=== PATIENT | male | born 1950 | race Caucasian/White ===

== ENCOUNTER → 2021-08-16 13:30 | Outpatient (BNVA) | payer OTHER, SELFPAY | PROVIDERS: Family Provider Internal Medicine; Referring Provider Family Medicine; Visit Provider Internal Medicine | DX: E27.9 Disorder of adrenal gland, unspecified (principal); D35.00 Benign neoplasm of unspecified adrenal gland; F17.200 Nicotine dependence, unspecified, uncomplicated | CPT/HCPCS: 99204 ==

== ENCOUNTER 2021-10-02 22:44 | Emergency (ER) | payer OTHER, MEDICARE, SELFPAY ==
[2021-10-02 22:46] VITALS: BP 164/76; PULSE 93; RESP 24; TEMP 36.8; O2SAT 94; BMI 23.2
--- NOTE | 2021-10-02 22:51 | ECG_ITS ---
[facility] Test Date: 2021-10-02 Pat Name: Ronnie Rob Department: Room: Gender: Male Brief Writer: : 1950 Requested By: Sherlyn Esqueda Order Number: [id number] Timothy MD: Juan Matias M.D. Measurements Intervals [place] Rate: 93 P: 60 VA: 173 QRS: 3 QRSD: 105 T: 33 QT: 354 QTc: 440 Interpretive Statements SINUS RHYTHM WITH OCCASIONAL SUPRAVENTRICULAR PREMATURE COMPLEXES No previous ECG available for comparison Electronically Signed On 10-03-2021 16:01:39 CHIEF SECURITY OFFICER by Juan Matias M.D. [email or web address]
--- NOTE | 2021-10-02 22:51 | XRR_ITS ---
PROCEDURE INFORMATION: Exam: XR Chest Exam date and time: 10/02/2021 10:51 PM Age: 71 years old Clinical indication: Shortness of breath; Prior surgery; Surgery type: Coronary stent; Patient HX: C/O SOB. TECHNIQUE: Imaging protocol: XR of the chest. Views: 1 view. COMPARISON: No relevant prior studies available. FINDINGS: Lungs: Minimal nonspecific opacity in the lung bases. Pleural spaces: There is no pleural effusion or pneumothorax. Heart/Mediastinum: Cardiomediastinal contours are unremarkable. Bones/joints: Bones are unremarkable. XR/XR chest 1V portable [id number] IMPRESSION: Minimal nonspecific opacity in the lung bases. Possible atelectasis or consolidation.
[2021-10-02 23:06] LABS: Basophils % 0.2 %; Eosinophils % 0.1 %; Hematocrit 43.5 % (42.0-52.0); Hemoglobin 14.5 g/dL (11.7-16.6); Lymphocytes % 7.1 %; Mean Corpuscular HGB Conc 33.3 g/dL (30.0-36.0); Mean Corpuscular Hemoglobin 32.7 pg (28.0-34.0); Mean Platelet Volume 10.3 fL (7.4-10.4); Monocytes # 1.8 10^3/uL (0.2-0.9); Monocytes % 12.7 %; Neutrophils # 11.04 10^3/uL (1.8-7.7); Neutrophils % 79.5 %; Nucleated Red Blood Cells % 0 %; Platelet Count 193 10^3/cmm (130-400); Red Blood Count 4.44 10^6/uL (4.1-5.3); Red Cell Distribution Width 12.2 % (12.1-15.1); White Blood Count 13.9 10^3/uL (4.0-10.0)
[2021-10-02 23:16] VITALS: BP 148/94; PULSE 78; RESP 21; O2SAT 92
--- NOTE | 2021-10-02 23:18 | ED_ITS ---
HPI - SOB/Dyspnea General: Chief Complaint: Shortness of Breath/Dyspnea Stated Complaint: SOB Time Seen by Provider: 10/02/21 22:51 Source: patient and EMS Mode of arrival: EMS Limitations: no limitations History of Present Illness: HPI Narrative: 71-year-old male states that he has had a cough along with low-grade fevers shortness of breath over the last 2 days he states he got much worse tonight when he was out feeding his lifestyle. He states he has been around his who just recently tested positive for influenza. Patient here is 89% on room air he does not wear oxygen at home does have a history of COPD along with longtime smoking. Denies any chest pain. Associated symptoms: Deny abdominal pain, chest pain, nausea or vomiting Review of Systems Const: Reports: chills and body aches Eyes: Denies: blurry vision or eye discomfort ENMT: Denies: throat pain or dental pain Card: Denies: chest pain Resp: Reports: dyspnea and non-productive cough GI: Denies: abdominal pain, nausea, vomiting or diarrhea : Denies: dysuria Musc: Denies: neck pain or back pain Skin/Breast: Denies: rash Neuro: Denies: headache(s) Psych: Denies: depression Raimundo/Lymph: Denies: easy bruising All/Imm: Denies: urticaria PFSH ED PFSH: Medical History Agent orange exposure Aneurysm Benign essential HTN Cataract Diabetes Diverticulitis Enlarged prostate Heart attack High cholesterol Hydrocele Kidney stones Surgical History Stented coronary artery Family History Father H/O asbestos exposure Mother Cancer Social History Smoking and tobacco status: current every day smoker Quit status (tobacco): not considering quitting Second hand smoke exposure: Yes Smoking risk assessment/counseling performed?: Yes Alcohol intake: never Desire information about alcohol rehabilitation?: No Counseling given: No Desire information about substance/drug rehabilitation?: No Counseling given: No Adopted: No Caregiver/support person: No Lives independently: Yes Household members: spouse Housing: House Marital status: Number of children: 4 Highest education level completed: Some College, No Degree service: Yes Current occupational status: retired History of recent travel: No Physical Exam Const: COMMON NORMALS: no acute distress, patient oriented x3 and healthy appearing HENMT: COMMON NORMALS: normocephalic and atraumatic HEAD & SCALP: normocephalic and atraumatic Eye: COMMON NORMALS: Equal, round and reactive pupils present and EOMs intact bilaterally PUPIL: Yes Equal, round and reactive pupils present Neck/C-Spine: COMMON NORMALS: full ROM and supple Chest: COMMONS NORMALS: normal inspection of the chest and normal palpation of entire chest wall Resp: COMMON NORMALS: normal respiratory effort, No retractions, No use of accessory muscles and clear to auscultation bilaterally AUSCULTATION: clear to auscultation bilaterally Cardio: COMMON NORMALS: regular rate, regular rhythm and No murmurs present (Cardio) RATE: regular rate RHYTHM: regular rhythm GI: COMMON NORMALS: Normal to inspection, nondistended, normoactive bowel sounds present, Soft to palpation, non-tender and no masses PALPATION: Yes Soft to palpation Extremity: COMMON NORMALS: normal to inspection and full ROM Neuro: COMMON NORMALS: patient oriented x3, moves all extremities and no focal motor deficits Psych: COMMON NORMALS: mental status grossly normal, Normal thought process present and cooperative THOUGHT PROCESS: Normal thought process present Skin: COMMON NORMALS: no rashes or lesions noted and no wounds GENERAL SKIN EXAM: no rashes or lesions noted Course Vital Signs: Vital signs: Vital Signs Temperature 98.3 F 10/02/21 22:46 Pulse Rate 83 10/03/21 00:02 Respiratory Rate 19 H 10/03/21 00:02 Blood Pressure 148/94 10/02/21 23:16 Pulse Oximetry 90 10/03/21 00:02 MDM - SOB/Dyspnea Medical Decision Making Patient presents here with influenza he feels much improved after breathing treatment and steroids he is not requiring oxygen here any longer. X-ray showed no pneumonia. We will start him on Tamiflu along with prednisone and albuterol inhaler he is to follow-up his primary care doctor in 3 to 5 days return to ER if worsening he understands and agrees to plan. Lab Data : 10/02/21 22:55 10/02/21 22:55 Labs/Radiology: Radiology Impressions Chest X-Ray 10/02/21 22:51 IMPRESSION: Minimal nonspecific opacity in the lung bases. Possible atelectasis or consolidation. Laboratory Results WBC 13.9 10^3/uL (4.0-10.0) H 10/02/21 22:55 RBC 4.44 10^6/uL (4.1-5.3) 10/02/21 22:55 Hgb 14.5 g/dL (11.7-16.6) 10/02/21 22:55 Hct 43.5 % (42.0-52.0) 10/02/21 22:55 MCV 98.0 fl (80-94) H 10/02/21 22:55 MCH 32.7 pg (28.0-34.0) 10/02/21 22:55 MCHC 33.3 g/dL (30.0-36.0) 10/02/21 22:55 RDW 12.2 % (12.1-15.1) 10/02/21 22:55 Plt Count 193 10^3/cmm (130-400) 10/02/21 22:55 MPV 10.3 fL (7.4-10.4) 10/02/21 22:55 Neut % (Auto) 79.5 % 10/02/21 22:55 Lymph % (Auto) 7.1 % 10/02/21 22:55 Bowie % (Auto) 12.7 % 10/02/21 22:55 Eos % (Auto) 0.1 % 10/02/21 22:55 Baso % (Auto) 0.2 % 10/02/21 22:55 Neut # (Auto) 11.04 10^3/uL (1.8-7.7) H 10/02/21 22:55 Lymph # (Auto) 1.0 10^3/uL (0.8-4.8) 10/02/21 22:55 Bowie # (Auto) 1.8 10^3/uL (0.2-0.9) H 10/02/21 22:55 Eos # (Auto) 0.0 10^3/uL (0.0-0.8) 10/02/21 22:55 Baso # (Auto) 0.0 10^3/uL (0.0-0.1) 10/02/21 22:55 Nucleated RBC % (auto) 0 % 10/02/21 22:55 Nucleated RBCs # 0.0 /100WBC 10/02/21 22:55 Specimen Type Arterial 10/03/21 00:20 Sample Site Radial, right 10/03/21 00:20 ABG pH 7.46 (7.35-7.45) H 10/03/21 00:20 ABG pCO2 35.2 mmHg (35-45) 10/03/21 00:20 ABG pO2 57.1 mmHg (80.0-100.0) L 10/03/21 00:20 ABG HCO3 25.1 mmol/L (22-26) 10/03/21 00:20 ABG Base Excess 1.6 mmol/L (-2.0-2.0) 10/03/21 00:20 Christofer Test Pos 10/03/21 00:20 Hematocrit 43.6 % (42-52) 10/03/21 00:20 Hgb O2 Saturation 89.8 % (95-100) L 10/03/21 00:20 Carboxyhemoglobin 1.3 %THgb (0.4-20.1) 10/03/21 00:20 Methemoglobin 1.0 % (0.4-1.5) 10/03/21 00:20 Total Hemoglobin 14.2 g/dL (14-18) 10/03/21 00:20 O2 Delivery Device Nc 10/03/21 00:20 O2 Liters/Min 1.5 % 10/03/21 00:20 Sales Representative ID Claudio 10/03/21 00:20 Sodium 137 mmol/L (136-145) 10/02/21 22:55 Potassium 4.4 mmol/L (3.5-5.1) 10/02/21 22:55 Chloride 95 mmol/L (98-107) L 10/02/21 22:55 Carbon Dioxide 25 mmol/L (22-29) 10/02/21 22:55 Anion Gap 21.4 (5-19) H 10/02/21 22:55 BUN 12 mg/dL (8-23) 10/02/21 22:55 Creatinine 0.8 mg/dL (0.7-1.2) 10/02/21 22:55 GFR Calculation Not Reportable 10/02/21 22:55 Glucose 120 mg/dL (65-115) H 10/02/21 22:55 Calculated Osmolality 285 mOsm/kg (285-295) 10/02/21 22:55 Calcium 8.4 mg/dL (8.5-10.5) L 10/02/21 22:55 Total Bilirubin 0.7 mg/dL (0.15-1.2) 10/02/21 22:55 AST 18 U/L (0-40) 10/02/21 22:55 ALT 8 U/L (0-41) 10/02/21 22:55 Alkaline Phosphatase 69 IU/L (40-130) 10/02/21 22:55 NT-Pro-B Natriuret Pep 875 pg/mL (0-125) H 10/02/21 22:55 Total Protein 6.7 g/dL (6.6-8.7) 10/02/21 22:55 Albumin 4.2 g/dL (3.5-5.2) 10/02/21 22:55 Globulin 2.5 g/dL (1.3-4.6) 10/02/21 22:55 Lipase 15 U/L (13-60) 10/02/21 22:55 Nasal Influ A H1 2008 PCR Cancelled 10/03/21 01:02 Coronavirus 229E (PCR) Not detected (NOT DETECT) 10/02/21 23:00 Influenza A (H1) PCR Cancelled 10/03/21 01:02 Influenza A (H3) PCR Cancelled 10/03/21 01:02 Influenza Type A (PCR) Cancelled 10/03/21 01:02 Influenza Type B (PCR) Cancelled 10/03/21 01:02 SARS-CoV-2 (PCR) Not detected (NOT DETECT) 10/02/21 23:00 EKG Data EKG 1: I personally reviewed and interpreted this EKG as follows: EKG Interpretation Date: 10/02/21 EKG interpretation time: 23:02 Interpretation: nsr hr [address] or t wave abnormalities [id number] [id number] Discharge Plan Discharge Patient Disposition: Home Clinical Impression: Influenza Condition: Stable Prescriptions: New prednisone 50 mg tablet 50 mg PO DAILY Qty: 5 0RF albuterol sulfate 90 mcg/actuation HFA aerosol inhaler 2 inh INHALATION Q6H PRN (Reason: shortness of breath or wheezing) Qty: 8 0RF Tamiflu 75 mg capsule 75 mg PO BID 5 Days Qty: 10 0RF No Action clopidogrel 75 mg tablet 75 mg PO DAILY 0RF carvedilol 12.5 mg tablet 12.5 mg PO ONCE 0RF Rx Instructions: must administer with a meal/food cholecalciferol (vitamin D3) 50 mcg (2,000 unit) capsule 50 mcg PO DAILY 0RF amlodipine 10 mg tablet 10 mg PO DAILY 0RF lisinopril 40 mg tablet 40 mg PO DAILY 0RF metformin 750 mg tablet extended release 24 hr 750 mg PO DAILY 0RF folic acid 1 mg tablet 1 mg PO DAILY 0RF aspirin 81 mg tablet,delayed release (DR/EC) 81 mg PO DAILY 0RF omeprazole 20 mg capsule,delayed release(DR/EC) 20 mg PO DAILY 0RF Glucosamine-Fish Oil 500-400-5 mg-mg-unit capsule PO BID 0RF ascorbic acid (vitamin C) 1,000 mg tablet 1 g PO DAILY 0RF Discharge Orders: Discharge ED (Routine); Ordered 10/03/21 Ordered By: Sherlyn Esqueda Discharge Diet: Advance as tolerated Discharge Activity: Resume usual activity Patient Instructions: Influenza (ED) Coding Level of Care Code ED Supervisor Rubber Covering for Cara Fwd Exam Comprehensive
--- NOTE | 2021-10-02 23:18 | PC.NURSE ---
patient received with c/o SOB. states just could not catch breath. history COPD and continues to smoke. states previous stent placement. speech clear sentences complete.
[2021-10-02 23:22] LABS: Albumin Level 4.2 g/dL (3.5-5.2); Alkaline Phosphatase 69 IU/L (40-130); Blood Urea Nitrogen 12 mg/dL (8-23); Calcium 8.4 mg/dL (8.5-10.5); Carbon Dioxide 25 mmol/L (22-29); Chloride 95 mmol/L (98-107); Globulin 2.5 g/dL (1.3-4.6); Glucose 120 mg/dL (65-115); Lipase 15 U/L (13-60); Osmolality Calculated 285 mOsm/kg (285-295); Sodium 137 mmol/L (136-145); Total Bilirubin 0.7 mg/dL (0.15-1.2); Total Protein 6.7 g/dL (6.6-8.7)
[2021-10-02 23:23] LABS: Alanine Aminotransferase 8 U/L (0-41); Anion Gap 21.4 (5-19); Aspartate Amino Transferase 18 U/L (0-40); Potassium 4.4 mmol/L (3.5-5.1)
[2021-10-02 23:31] LABS: NT Pro B Type Natriuretic Pept 875 pg/mL (0-125)
[2021-10-03 00:02] VITALS: PULSE 83; RESP 19; O2SAT 90
[2021-10-03] MEDS: ipratropium-albuterol 3 mL Neb INHALATION (00:02)
[2021-10-03 00:32] LABS: ABG PCO2 35.2 mmHg (35-45); ABG PH Result 7.46 (7.35-7.45); Arterial Blood Gas Hematocrit 43.6 % (42-52); Base Excess ABG 1.6 mmol/L (-2.0-2.0); Blood Gas Allen Test Pos; Blood Gas LPM 1.5 %; Blood Gas Operator Identificat JB; Blood Gas Sample Site Radial, right; Blood Gas Sample Type Arterial; Carboxyhemoglobin 1.3 %THgb (0.4-20.1); HCO3 ABG 25.1 mmol/L (22-26); HGB O2 Sat 89.8 % (95-100); Oxygen Device NC; PO2 ABG 57.1 mmHg (80.0-100.0); Total Hemoglobin 14.2 g/dL (14-18)
[2021-10-03 00:55] LABS: Adenovirus Not Detected (NOT DETECT); Chlamydia Pneumoniae Not Detected (NOT DETECT); Coronavirus 229E,HKU1,NL63,OC4 Not Detected (NOT DETECT); Human Metapneumovirus Not Detected (NOT DETECT); Human Rhinovirus/Enterovirus Not Detected (NOT DETECT); Influenza A Detected (NOT DETECT); Influenza A H1 Not Detected (NOT DETECT); Influenza A H1-2009 Not Detected (NOT DETECT); Influenza A H3 Detected (NOT DETECT); Influenza B Not Detected (NOT DETECT); Mycoplasma Pneumoniae Not Detected (NOT DETECT); Parainfluenza Virus Type 1 Not Detected (NOT DETECT); Parainfluenza Virus Type 2 Not Detected (NOT DETECT); Parainfluenza Virus Type 3 Not Detected (NOT DETECT); Parainfluenza Virus Type 4 Not Detected (NOT DETECT); Respiratory Syncytial Virus A Not Detected (NOT DETECT); Respiratory Syncytial Virus B Not Detected (NOT DETECT); SARS-COV-2 Not Detected (NOT DETECT)
[2021-10-03 01:03] LABS: Results from Genmark
[2021-10-03 02:26] VITALS: BP 135/73; PULSE 78; RESP 20; TEMP 36.2
== END 2021-10-03 02:27 | disposition home or self-care (01) ==
PROVIDERS: Emergency Provider Emergency Medicine
DX: J11.1 Influenza due to unidentified influenza virus with other respiratory manifestations (principal); Z79.84 Long term (current) use of oral hypoglycemic drugs; Z79.02 Long term (current) use of antithrombotics/antiplatelets; Z79.82 Long term (current) use of aspirin; I10 Essential (primary) hypertension; E11.9 Type 2 diabetes mellitus without complications; F17.210 Nicotine dependence, cigarettes, uncomplicated; Z20.822 Contact with and (suspected) exposure to COVID-19
CPT/HCPCS: 71045; 80053; 82805; 83690; 83880; 85025; 87040; 87631; 87635; 93005; 94640; 96374; 99284; J2930; J3535

== ENCOUNTER 2021-10-05 22:53 | Emergency (ER) | payer OTHER, MEDICARE, SELFPAY ==
[2021-10-05 22:55] VITALS: BP 153/78; PULSE 79; RESP 18; TEMP 36.1; O2SAT 92; BMI 23.1
[2021-10-05 23:25] VITALS: O2SAT 95
--- NOTE | 2021-10-05 23:56 | XRR_ITS ---
PROCEDURE INFORMATION: Exam: XR Chest Exam date and time: 10/05/2021 11:56 PM Age: 71 years old Clinical indication: Cough and shortness of breath; Prior surgery; Surgery type: Stent; Patient HX: Flu+ C/O SOB, cough, elev BP; Additional info: Influenza symptoms TECHNIQUE: Imaging protocol: XR of the chest. Views: 1 view. COMPARISON: CR (CHEST, ) 10/02/2021 11:04 PM FINDINGS: Lungs: Stable COPD . Pleural spaces: Unremarkable. No pleural effusion. No pneumothorax. Heart/Mediastinum: Unremarkable. No cardiomegaly. Bones/joints: Unremarkable. XR/XR chest 1V portable [id number] IMPRESSION: Stable COPD .
--- NOTE | 2021-10-05 23:56 | XRR_ITS ---
PROCEDURE INFORMATION: Exam: XR Abdomen Exam date and time: 10/05/2021 11:56 PM Age: 71 years old Clinical indication: Abdominal pain; Generalized; Patient HX: C/O constipation and non specific abd pain TECHNIQUE: Imaging protocol: XR of the abdomen. Views: Frontal supine view of the abdomen. 1 View. COMPARISON: CR (CHEST, ) 10/02/2021 11:04 PM FINDINGS: Gastrointestinal tract: Mild retained feces. Vasculature: Calcification of the abdominal aorta and/or iliac arteries consistent with atherosclerotic vessel disease. Bones/joints: Unremarkable. XR/XR KUB portable [id number] IMPRESSION: Mild retained feces.
--- NOTE | 2021-10-05 23:57 | ED_ITS ---
Documented by User: JOSE FRANCISCO Bedoya 10/06/21 02:57 HPI - General Adult General: Chief complaint: General Medical Stated complaint: HIGH BLOOD PRESSURE Time Seen by Provider: 10/05/21 23:30 History of Present Illness: Patient is a 71-year-old male comes to the ED with elevated blood pressure. Past medical history of AAA and COPD but is not on any oxygen at home. Patient was seen here in the ED back on 10/02 and diagnosed with influenza. Patient says he still having his flulike symptoms with cough, congestion and some mild shortness of breath. Tonight he checked his blood pressure at home and it was elevated. He said the systolic number was close to 200. Patient does endorse some constipation and says he has not had a bowel movement in 3 days. Reports some abdominal pain in the periumbilical region. Denies any chest pain or vomiting. Associated symptoms: Reports dyspnea; Deny chest pain, headache(s), nausea, rash, palpitations or vomiting Review of Systems 2 Const: Reports: chills and body aches; Denies: fever(s) or fatigue Eyes: Denies: change in vision or eye discomfort ENMT: Denies: throat pain, odynophagia, nasal discharge or nasal congestion Card: Denies: chest pain, palpitations, edema, swelling of feet/ankles, dyspnea on exertion or orthopnea Resp: Reports: dyspnea and non-productive cough; Denies: productive cough GI: Reports: abdominal pain and constipation; Denies: nausea, vomiting, diarrhea or hematochezia : Denies: flank pain, difficulty urinating, dysuria or hematuria Musc: Denies: neck pain, back pain or extremity swelling Skin/Breast: Denies: rash or new lesions Neuro: Denies: headache(s), numbness in extremities or weakness in extremities PFSH ED PFSH: Medical History Agent orange exposure Aneurysm Benign essential HTN Cataract Diabetes Diverticulitis Enlarged prostate Heart attack High cholesterol Hydrocele Kidney stones Surgical History Stented coronary artery Family History Father H/O asbestos exposure Mother Cancer Social History Smoking and tobacco status: current every day smoker Quit status (tobacco): not considering quitting Second hand smoke exposure: Yes Smoking risk assessment/counseling performed?: Yes Alcohol intake: never Desire information about alcohol rehabilitation?: No Counseling given: No Desire information about substance/drug rehabilitation?: No Counseling given: No Adopted: No Caregiver/support person: No Lives independently: Yes Household members: spouse Housing: House Marital status: Number of children: 4 Highest education level completed: Some College, No Degree service: Yes Current occupational status: retired History of recent travel: No Physical Exam Const: COMMON NORMALS: no acute distress, patient oriented x3 and alert GENERAL APPEARANCE: cooperative and comfortable HENMT: COMMON NORMALS: normocephalic HEAD & SCALP: normocephalic MOUTH: Normal oral and palatal mucosa present THROAT: posterior oropharynx normal and uvula midline Neck/C-Spine: COMMON NORMALS: supple GENERAL: Yes normal visual inspection Resp: COMMON NORMALS: normal respiratory effort, No retractions and No use of accessory muscles AUSCULTATION: diminished lung sounds bilateral in the lower lung nunez Cardio: COMMON NORMALS: regular rate, regular rhythm, S1 normal heart sound present, S2 normal heart sound present, No gallops present (Cardio), No clicks present (Cardio), No murmurs present (Cardio) and Peripheral pulses 2+ throughout RATE: regular rate RHYTHM: regular rhythm HEART SOUNDS: S1 normal heart sound present and S2 normal heart sound present PERIPHERAL PULSES: Peripheral pulses 2+ throughout GI: COMMON NORMALS: Normal to inspection, nondistended, normoactive bowel sounds present, Soft to palpation and no masses PALPATION: Yes Soft to palpation and Yes Tenderness to palpation present (GI) (Periumbilical region) : COMMON NORMALS: Yes no CVA tenderness BLADDER/KIDNEY EXAM: Yes no CVA tenderness Back/Pelvis: COMMON NORMALS: no CVA tenderness Extremity: COMMON NORMALS: normal to inspection and no pedal edema Neuro: COMMON NORMALS: patient oriented x3 and moves all extremities SENSORIUM/ORIENTATION: Yes alert Skin: GENERAL SKIN EXAM: dry skin Course Vital Signs: Vital signs: Vital Signs Temperature 97.0 F L 10/05/21 22:55 Pulse Rate 79 10/05/21 22:55 Respiratory Rate 18 10/05/21 22:55 Blood Pressure 153/78 10/05/21 22:55 Pulse Oximetry 95 10/05/21 23:25 MDM - General Adult Medical Decision Making Patient is a 71-year-old male who comes to the ED with elevated blood pressure and some abdominal pain. Patient has a past medical history of COPD and AAA. Patient was seen here in the ED a couple days ago and diagnosed with influenza. He was sent home with a prescription for Tamiflu, albuterol inhaler and prednisone. Here in the ED patient's blood pressure is 153/78 rest of vitals are stable. Exam shows some diminished lung sounds at the bases bilaterally. He also has some palpable tenderness over the umbilical region of abdomen. White blood cell count 16.1 the rest of CBC and CMP was unremarkable. KUB showed mild retained feces. Chest x-ray showed stable COPD. Abdominal CT showed mild to moderate retained feces in some mild bilateral lower lobe pneumonia. Patient diagnosed with pneumonia and constipation. Patient was discharged home with a prescription for doxycycline and MiraLAX. He was told to follow-up with his PCP in 3 to 5 days for reevaluation. He was told to continue taking his previously prescribed medications. Return to ED precautions given. Patient understood and agreed with plan. Lab Data I reviewed the patient's lab results. : 10/06/21 01:31 10/06/21 01:31 Radiology Impressions Chest X-Ray 10/05/21 23:56 IMPRESSION: Stable COPD . KUB X-Ray 10/05/21 23:56 IMPRESSION: Mild retained feces. Abdomen/Pelvis CT 10/06/21 00:18 IMPRESSION: 1. Mild bilateral lower lobe pneumonia. 2. Mild to moderate retained feces. 3. Bowel wall thickening in the 1st and 2nd portion the duodenum suggesting possible duodenitis versus neoplasm. 4. 4.4 cm fusiform abdominal aortic aneurysm without rupture. Laboratory Results WBC 16.1 10^3/uL (4.0-10.0) H 10/06/21 01:31 RBC 4.59 10^6/uL (4.1-5.3) 10/06/21 01:31 Hgb 15.1 g/dL (11.7-16.6) 10/06/21 01:31 Hct 44.1 % (42.0-52.0) 10/06/21 01:31 MCV 96.1 fl (80-94) H 10/06/21 01:31 MCH 32.9 pg (28.0-34.0) 10/06/21 01: MCHC 34.2 g/dL (30.0-36.0) 10/06/21 01: RDW 11.9 % (12.1-15.1) L 10/06/21 01:31 Plt Count 310 10^3/cmm (130-400) 10/06/21 01:31 MPV 9.7 fL (7.4-10.4) 10/06/21 01:31 Neut % (Auto) 70.9 % 10/06/21 01: Lymph % (Auto) 12.2 % 10/06/21 01:31 [place] % (Auto) 15.9 % 10/06/21 01: Eos % (Auto) 0.0 % 10/06/21 01: Baso % (Auto) 0.2 % 10/06/21 01: Neut # (Auto) 11.44 10^3/uL (1.8-7.7) H 10/06/21 01:31 Lymph # (Auto) 2.0 10^3/uL (0.8-4.8) 10/06/21 01:31 [place] # (Auto) 2.6 10^3/uL (0.2-0.9) H 10/06/21 01:31 Eos # (Auto) 0.0 10^3/uL (0.0-0.8) 10/06/21 01: Baso # (Auto) 0.0 10^3/uL (0.0-0.1) 10/06/21 01:31 Nucleated RBC % (auto) 0 % 10/06/21 01: Nucleated RBCs # 0.0 /100WBC 10/06/21 01:31 Sodium 136 mmol/L (136-145) 10/06/21 01:31 Potassium 3.6 mmol/L (3.5-5.1) 10/06/21 01: Chloride 98 mmol/L (98-107) 10/06/21 01:31 Carbon Dioxide 26 mmol/L (22-29) 10/06/21 01:31 Anion Gap 15.6 (5-19) 10/06/21 01:31 BUN 13 mg/dL (8-23) 10/06/21 01:31 Creatinine 0.7 mg/dL (0.7-1.2) 10/06/21 01:31 GFR Calculation Not Reportable 10/06/21 01:31 Glucose 137 mg/dL (65-115) H 10/06/21 01:31 Calculated Osmolality 284 mOsm/kg (285-295) L 10/06/21 01:31 Calcium 8.8 mg/dL (8.5-10.5) 10/06/21 01:31 Total Bilirubin 0.6 mg/dL (0.15-1.2) 10/06/21 01:31 AST 10 U/L (0-40) 10/06/21 01:31 ALT 8 U/L (0-41) 10/06/21 01:31 Alkaline Phosphatase 67 IU/L (40-130) 10/06/21 01:31 Total Protein 6.9 g/dL (6.6-8.7) 10/06/21 01:31 Albumin 3.8 g/dL (3.5-5.2) 10/06/21 01:31 Globulin 3.1 g/dL (1.3-4.6) 10/06/21 01:31 Discharge Plan Discharge Patient Disposition: Home Clinical Impression: Pneumonia Qualifiers: Pneumonia type: due to unspecified organism Laterality: bilateral Lung location: lower lobe of lung Qualified Code(s): J18.9 - Pneumonia, unspecified organism Constipation Qualifiers: Constipation type: slow transit constipation Qualified Code(s): K59.01 - Slow transit constipation Condition: Stable Prescriptions: New doxycycline hyclate 100 mg capsule 100 mg PO BID 10 Days Qty: 20 0RF Miralax 17 gram/dose powder 17 g PO DAILY PRN (Reason: constipation) Qty: 238 0RF No Action clopidogrel 75 mg tablet 75 mg PO DAILY 0RF carvedilol 12.5 mg tablet 12.5 mg PO ONCE 0RF Rx Instructions: must administer with a meal/food cholecalciferol (vitamin D3) 50 mcg (2,000 unit) capsule 50 mcg PO DAILY 0RF amlodipine 10 mg tablet 10 mg PO DAILY 0RF lisinopril 40 mg tablet 40 mg PO DAILY 0RF metformin 750 mg tablet extended release 24 hr 750 mg PO DAILY 0RF folic acid 1 mg tablet 1 mg PO DAILY 0RF aspirin 81 mg tablet,delayed release (DR/EC) 81 mg PO DAILY 0RF omeprazole 20 mg capsule,delayed release(DR/EC) 20 mg PO DAILY 0RF Glucosamine-Fish Oil 500-400-5 mg-mg-unit capsule PO BID 0RF ascorbic acid (vitamin C) 1,000 mg tablet 1 g PO DAILY 0RF prednisone 50 mg tablet 50 mg PO DAILY Qty: 5 0RF albuterol sulfate 90 mcg/actuation HFA aerosol inhaler 2 inh INHALATION Q6H PRN (Reason: shortness of breath or wheezing) Qty: 8 0RF Tamiflu 75 mg capsule 75 mg PO BID 5 Days Qty: 10 0RF Discharge Orders: Discharge ED (Routine); Ordered 10/06/21 Ordered By: Beni Lebron Discharge Diet: Regular Discharge Activity: Resume usual activity Patient Instructions: Constipation (DC), Pneumonia (ED) Activity Restrictions/Additional Instructions: Follow-up with medical provider as directed in 3 to 5 days for reevaluation.Take medications as prescribed. Return to the ER or your medical provider if condition worsens. Please read and understand discharge instructions. Thank you for choosing [facility] for your healthcare needs today. Please realize this is an emergency room and that we are providing you with a medical screening exam and this may not be complete and all inclusive of all the testing and or work up that you may need to determine your ailment or severity of your illness. It is very important that you follow up as instructed or that you return to the Emergency Department should you have concerns or if your cond ition changes or worsens in any way. Coding Level of Care Code ED Head Mva Reactor Operator for Chg Fwd Exam Comprehensive Documented by User: Garett Park DO 10/06/21 03:06 HPI - General Adult General: Chief complaint: General Medical Stated complaint: HIGH BLOOD PRESSURE Time Seen by Provider: 10/05/21 23:30 [facility] ED PFSH: Medical History Agent orange exposure Aneurysm Benign essential HTN Cataract Diabetes Diverticulitis Enlarged prostate Heart attack High cholesterol Hydrocele Kidney stones Surgical History Stented coronary artery Family History Father H/O asbestos exposure Mother Cancer Social History Smoking and tobacco status: current every day smoker Quit status (tobacco): not considering quitting Second hand smoke exposure: Yes Smoking risk assessment/counseling performed?: Yes Alcohol intake: never Desire information about alcohol rehabilitation?: No Counseling given: No Desire information about substance/drug rehabilitation?: No Counseling given: No Adopted: No Caregiver/support person: No Lives independently: Yes Household members: spouse Housing: House Marital status: Number of children: 4 Highest education level completed: Some College, No Degree service: Yes Current occupational status: retired History of recent travel: No Course Vital Signs: Vital signs: Vital Signs Temperature 97.0 F L 10/05/21 22:55 Pulse Rate 79 10/05/21 22:55 Respiratory Rate 18 10/05/21 22:55 Blood Pressure 153/78 10/05/21 22:55 Pulse Oximetry 95 10/05/21 23:25 MDM - General Adult Medical Decision Making Patient is a 71-year-old male who comes to the ED with elevated blood pressure and some abdominal pain. Patient has a past medical history of COPD and AAA. Patient was seen here in the ED a couple days ago and diagnosed with influenza. He was sent home with a prescription for Tamiflu, albuterol inhaler and prednisone. Here in the ED patient's blood pressure is 153/78 rest of vitals are stable. Exam shows some diminished lung sounds at the bases bilaterally. He also has some palpable tenderness over the umbilical region of abdomen. White blood cell count 16.1 the rest of CBC and CMP was unremarkable. KUB showed mild retained feces. Chest x-ray showed stable COPD. Abdominal CT showed mild to moderate retained feces in some mild bilateral lower lobe pneumonia. Patient diagnosed with pneumonia and constipation. Patient was discharged home with a prescription for doxycycline and MiraLAX. He was told to follow-up with his PCP in 3 to 5 days for reevaluation. He was told to continue taking his previously prescribed medications. Return to ED precautions given. Patient understood and agreed with plan. This patient was originally seen by Mr. Vi PA-C.? I agree with his history, evaluation, and treatment. Lab Data : 10/06/21 01:31 10/06/21 01:31 Radiology Impressions Chest X-Ray 10/05/21 23:56 IMPRESSION: Stable COPD . KUB X-Ray 10/05/21 23:56 IMPRESSION: Mild retained feces. Abdomen/Pelvis CT 10/06/21 00:18 IMPRESSION: 1. Mild bilateral lower lobe pneumonia. 2. Mild to moderate retained feces. 3. Bowel wall thickening in the 1st and 2nd portion the duodenum suggesting possible duodenitis versus neoplasm. 4. 4.4 cm fusiform abdominal aortic aneurysm without rupture. Laboratory Results WBC 16.1 10^3/uL (4.0-10.0) H 10/06/21 01:31 RBC 4.59 10^6/uL (4.1-5.3) 10/06/21 01:31 Hgb 15.1 g/dL (11.7-16.6) 10/06/21 01:31 Hct 44.1 % (42.0-52.0) 10/06/21 01:31 MCV 96.1 fl (80-94) H 10/06/21 01:31 MCH 32.9 pg (28.0-34.0) 10/06/21 01:31 MCHC 34.2 g/dL (30.0-36.0) 10/06/21 01:31 RDW 11.9 % (12.1-15.1) L 10/06/21 01:31 Plt Count 310 10^3/cmm (130-400) 10/06/21 01:31 MPV 9.7 fL (7.4-10.4) 10/06/21 01:31 Neut % (Auto) 70.9 % 10/06/21 01:31 Lymph % (Auto) 12.2 % 10/06/21 01:31 [place] % (Auto) 15.9 % 10/06/21 01:31 Eos % (Auto) 0.0 % 10/06/21 01:31 Baso % (Auto) 0.2 % 10/06/21 01:31 Neut # (Auto) 11.44 10^3/uL (1.8-7.7) H 10/06/21 01:31 Lymph # (Auto) 2.0 10^3/uL (0.8-4.8) 10/06/21 01:31 [place] # (Auto) 2.6 10^3/uL (0.2-0.9) H 10/06/21 01:31 Eos # (Auto) 0.0 10^3/uL (0.0-0.8) 10/06/21 01:31 Baso # (Auto) 0.0 10^3/uL (0.0-0.1) 10/06/21 01:31 Nucleated RBC % (auto) 0 % 10/06/21 01: Nucleated RBCs # 0.0 /100WBC 10/06/21 01:31 Sodium 136 mmol/L (136-145) 10/06/21 01:31 Potassium 3.6 mmol/L (3.5-5.1) 10/06/21 01: Chloride 98 mmol/L (98-107) 10/06/21 01: Carbon Dioxide 26 mmol/L (22-29) 10/06/21 01:31 Anion Gap 15.6 (5-19) 10/06/21 01:31 BUN 13 mg/dL (8-23) 10/06/21 01:31 Creatinine 0.7 mg/dL (0.7-1.2) 10/06/21 01:31 GFR Calculation Not Reportable 10/06/21 01: Glucose 137 mg/dL (65-115) H 10/06/21 01:31 Calculated Osmolality 284 mOsm/kg (285-295) L 10/06/21 01: Calcium 8.8 mg/dL (8.5-10.5) 10/06/21 01:31 Total Bilirubin 0.6 mg/dL (0.15-1.2) 10/06/21 01:31 AST 10 U/L (0-40) 10/06/21 01: ALT 8 U/L (0-41) 10/06/21 01:31 Alkaline Phosphatase 67 IU/L (40-130) 10/06/21 01:31 Total Protein 6.9 g/dL (6.6-8.7) 10/06/21 01:31 Albumin 3.8 g/dL (3.5-5.2) 10/06/21 01:31 Globulin 3.1 g/dL (1.3-4.6) 10/06/21 01:31 Discharge Plan Discharge Patient Disposition: Home Clinical Impression: Pneumonia Qualifiers: Pneumonia type: due to unspecified organism Laterality: bilateral Lung location: lower lobe of lung Qualified Code(s): J18.9 - Pneumonia, unspecified organism Constipation Qualifiers: Constipation type: slow transit constipation Qualified Code(s): K59.01 - Slow transit constipation Condition: Stable Prescriptions: New doxycycline hyclate 100 mg capsule 100 mg PO BID 10 Days Qty: 20 0RF Miralax 17 gram/dose powder 17 g PO DAILY PRN (Reason: constipation) Qty: 238 0RF No Action clopidogrel 75 mg tablet 75 mg PO DAILY 0RF carvedilol 12.5 mg tablet 12.5 mg PO ONCE 0RF Rx Instructions: must administer with a meal/food cholecalciferol (vitamin D3) 50 mcg (2,000 unit) capsule 50 mcg PO DAILY 0RF amlodipine 10 mg tablet 10 mg PO DAILY 0RF lisinopril 40 mg tablet 40 mg PO DAILY 0RF metformin 750 mg tablet extended release 24 hr 750 mg PO DAILY 0RF folic acid 1 mg tablet 1 mg PO DAILY 0RF aspirin 81 mg tablet,delayed release (DR/EC) 81 mg PO DAILY 0RF omeprazole 20 mg capsule,delayed release(DR/EC) 20 mg PO DAILY 0RF Glucosamine-Fish Oil 500-400-5 mg-mg-unit capsule PO BID 0RF ascorbic acid (vitamin C) 1,000 mg tablet 1 g PO DAILY 0RF prednisone 50 mg tablet 50 mg PO DAILY Qty: 5 0RF albuterol sulfate 90 mcg/actuation HFA aerosol inhaler 2 inh INHALATION Q6H PRN (Reason: shortness of breath or wheezing) Qty: 8 0RF Tamiflu 75 mg capsule 75 mg PO BID 5 Days Qty: 10 0RF Discharge Orders: Discharge ED (Routine); Ordered 10/06/21 Ordered By: Beni Lebron Discharge Diet: Regular Discharge Activity: Resume usual activity Patient Instructions: Constipation (DC), Pneumonia (ED) Activity Restrictions/Additional Instructions: Follow-up with medical provider as directed in 3 to 5 days for reevaluation.Take medications as prescribed. Return to the ER or your medical provider if co ndition worsens. Please read and understand discharge instructions. Thank you for choosing [facility] for your healthcare needs today. Please realize this is an emergency room and that we are providing you with a medical screening exam and this may not be complete and all inclusive of all the testing and or work up that you may need to determine your ailment or severity of your illness. It is very important that you follow up as instructed or that you return to the Emergency Department should you have concerns or if your condition changes or worsens in any way. Coding Level of Care Code ED Head Mva Reactor Operator for Craa Fwrandall Exam Comprehensive
--- NOTE | 2021-10-06 00:18 | CTR_ITS ---
PROCEDURE INFORMATION: Exam: CT Abdomen And Pelvis With Contrast Exam date and time: 10/06/2021 12:18 AM Age: 71 years old Clinical indication: Patient HX: C/O abd pain and constipation; Additional info: Abdominal pain-periumbuilical, constipation TECHNIQUE: Imaging protocol: Computed tomography of the abdomen and pelvis with contrast. Radiation optimization: All CT scans at this facility use at least one of these dose optimization techniques: automated exposure control; mA and/or kV adjustment per patient size (includes targeted exams where dose is matched to clinical indication); or iterative reconstruction. Contrast material: OMNI 300; Contrast volume: 90 ml; Contrast route: INTRAVENOUS (IV); COMPARISON: CR XR KUB portable [id number] 10/06/2021 12:03 AM RADIATION DOSE METRICS: Total DLP (mGy-cm): 944.25 FINDINGS: Lungs: Mild bilateral lower lobe pneumonia. Liver: Single hepatic cyst measuring > 1.0 cm. Gallbladder and bile ducts: Normal. No calcified stones. No ductal dilation. Pancreas: Normal. No ductal dilation. Spleen: Calcified splenic granulomas. Adrenal glands: Left adrenal hyperplasia. Kidneys and ureters: One or more nonobstructing left renal calyceal stones. Stomach and bowel: Bowel wall thickening in the 1st and 2nd portion the duodenum suggesting possible duodenitis versus neoplasm. Mild descending and/or sigmoid colon diverticulosis without diverticulitis. Appendix: No evidence of appendicitis. Intraperitoneal space: Unremarkable. No free air. No significant fluid collection. Vasculature: Calcification of the abdominal aorta and/or iliac arteries consistent with atherosclerotic vessel disease. 4.4 cm fusiform abdominal aortic aneurysm without rupture. One or more calcified pelvic phleboliths. Lymph nodes: Unremarkable. No enlarged lymph nodes. Urinary bladder: Unremarkable as visualized. Reproductive: Nonspecific prostate calcifications. Bones/joints: Unremarkable. No acute fracture. Soft tissues: Unremarkable. Other findings: Mild to moderate retained feces. CT/CT abdomen pelvis w con* [id number] IMPRESSION: 1. Mild bilateral lower lobe pneumonia. 2. Mild to moderate retained feces. 3. Bowel wall thickening in the 1st and 2nd portion the duodenum suggesting possible duodenitis versus neoplasm. 4. 4.4 cm fusiform abdominal aortic aneurysm without rupture.
[2021-10-06] MEDS: iohexol 300 mg/mL 100 mL Btl IV (00:30)
[2021-10-06 01:36] LABS: Basophils % 0.2 %; Hematocrit 44.1 % (42.0-52.0); Hemoglobin 15.1 g/dL (11.7-16.6); Lymphocytes % 12.2 %; Mean Corpuscular HGB Conc 34.2 g/dL (30.0-36.0); Mean Corpuscular Hemoglobin 32.9 pg (28.0-34.0); Mean Corpuscular Volume 96.1 fl (80-94); Mean Platelet Volume 9.7 fL (7.4-10.4); Monocytes # 2.6 10^3/uL (0.2-0.9); Monocytes % 15.9 %; Neutrophils # 11.44 10^3/uL (1.8-7.7); Neutrophils % 70.9 %; Nucleated Red Blood Cells % 0 %; Platelet Count 310 10^3/cmm (130-400); Red Blood Count 4.59 10^6/uL (4.1-5.3); Red Cell Distribution Width 11.9 % (12.1-15.1); White Blood Count 16.1 10^3/uL (4.0-10.0)
[2021-10-06 02:13] LABS: Alanine Aminotransferase 8 U/L (0-41); Albumin Level 3.8 g/dL (3.5-5.2); Alkaline Phosphatase 67 IU/L (40-130); Anion Gap 15.6 (5-19); Aspartate Amino Transferase 10 U/L (0-40); Blood Urea Nitrogen 13 mg/dL (8-23); Calcium 8.8 mg/dL (8.5-10.5); Carbon Dioxide 26 mmol/L (22-29); Chloride 98 mmol/L (98-107); Globulin 3.1 g/dL (1.3-4.6); Glucose 137 mg/dL (65-115); Osmolality Calculated 284 mOsm/kg (285-295); Potassium 3.6 mmol/L (3.5-5.1); Sodium 136 mmol/L (136-145); Total Bilirubin 0.6 mg/dL (0.15-1.2); Total Protein 6.9 g/dL (6.6-8.7)
[2021-10-06] MEDS: doxycycline 100 mg Tablet PO (02:54)
== END 2021-10-06 02:53 | disposition home or self-care (01) ==
PROVIDERS: Emergency Provider Physician Assistant
DX: K59.01 Slow transit constipation (principal); J18.9 Pneumonia, unspecified organism; Z79.84 Long term (current) use of oral hypoglycemic drugs; Z79.02 Long term (current) use of antithrombotics/antiplatelets; Z79.82 Long term (current) use of aspirin; I10 Essential (primary) hypertension; E11.9 Type 2 diabetes mellitus without complications; F17.210 Nicotine dependence, cigarettes, uncomplicated; J44.9 Chronic obstructive pulmonary disease, unspecified
CPT/HCPCS: 71045; 74018; 74177; 80053; 85025; 99283; Q9967

== ENCOUNTER → 2022-02-06 14:49 | Outpatient (BNVA) | payer OTHER, SELFPAY | PROVIDERS: Visit Provider Internal Medicine | DX: D35.00 Benign neoplasm of unspecified adrenal gland (principal); I71.4 Abdominal aortic aneurysm, without rupture; F17.200 Nicotine dependence, unspecified, uncomplicated | CPT/HCPCS: 99214 ==

== ENCOUNTER 2022-09-05 12:41 | Outpatient (CLI) | payer OTHER, SELFPAY ==
[2022-09-11 23:55] LABS: Plasma Renin Activity LC/MS/MS 0.73 ng/mL/h (0.25-5.82)
== END 2022-09-05 12:42 | disposition home or self-care (01) ==
LOC: LAB 12:44
PROVIDERS: PCP Family Medicine; Visit Provider Internal Medicine
DX: D35.00 Benign neoplasm of unspecified adrenal gland (principal); E27.9 Disorder of adrenal gland, unspecified
CPT/HCPCS: 36415; 82088; 84244

== ENCOUNTER 2022-09-06 14:29 | Outpatient (CLI) | payer OTHER, SELFPAY ==
[2022-09-06 15:04] LABS: Urine Creatinine 125 mg/dL (39-259)
[2022-09-06 15:05] LABS: Total Volume Urine 1400 ml
[2022-09-12 13:33] LABS: Calculated Total (E+NE) 51 mcg/24 h (26-121)
[2022-09-12 15:11] LABS: Free Cortisol Urine 25.7 mcg/24 h (4.0-50.0); Total Urine 1400 mL; Urine Creatinine 1.53 g/24 h (0.50-2.15)
== END 2022-09-06 14:30 | disposition home or self-care (01) ==
LOC: LAB 14:31
PROVIDERS: PCP Family Medicine; Visit Provider Internal Medicine
DX: D35.00 Benign neoplasm of unspecified adrenal gland (principal); E27.9 Disorder of adrenal gland, unspecified
CPT/HCPCS: 82384; 82530; 82570

== ENCOUNTER → 2022-09-09 12:44 | Outpatient (BNVA) | payer OTHER, SELFPAY | PROVIDERS: PCP Family Medicine; Visit Provider Internal Medicine | DX: D35.00 Benign neoplasm of unspecified adrenal gland (principal) | CPT/HCPCS: 99214 ==

== ENCOUNTER → 2022-12-18 13:30 | Outpatient (BNVA) | payer OTHER, SELFPAY | PROVIDERS: PCP Family Medicine; Visit Provider Nurse Practitioner Family | DX: L57.0 Actinic keratosis (principal); Z85.828 Personal history of other malignant neoplasm of skin; Z72.0 Tobacco use; L72.0 Epidermal cyst; L81.4 Other melanin hyperpigmentation; L57.8 Other skin changes due to chronic exposure to nonionizing radiation; D36.14 Benign neoplasm of peripheral nerves and autonomic nervous system of thorax; D22.5 Melanocytic nevi of trunk; Z71.89 Other specified counseling; L85.3 Xerosis cutis; D69.2 Other nonthrombocytopenic purpura | CPT/HCPCS: 17000; 17003; 99213 ==

== ENCOUNTER 2023-03-24 10:47 | Outpatient (CLI) | payer OTHER, SELFPAY ==
--- NOTE | 2023-03-24 11:15 | USCV_ITS ---
Ronnie Rob Age: 72 Gender: M : 1950 Exam Date: 03/24/2023 11:19 Ordering Phys: Maria Del Rosario Culp MD Technologist: Pranay Worthington Exam Location: [facility] [place] Indication: AAA prior 5cm HISTORY: Diameter (cm) AP x Transverse x Length Velocity (cm/s) Waveform Prox Aorta: 1.64 x 2.31 x 43.60 Mid Aorta: 2.30 x 2.96 x 28.60 Distal Aorta: 3.89 x 4.34 x 85.90 Right Iliac Prox: 1.53 x 1.83 x 109.60 Left Iliac Prox: 1.42 x 1.85 x 123.50 Stent Prox Landing x x Aneurysmal Sac Max x x Lt Lat Sac Dim Rt Lat Sac Dim Stent Dist Landing x x Right Iliac Stent x x Left Iliac Stent x x Right Renal Art Left Renal Art FINDINGS: Mild diffuse plaques in the abdominal aorta Fusiform dilatation of the distal abdominal aorta measuring 3.89 x 4.34 cm. Right proximal common iliac artery measured 1.53 x 1.83 Left proximal common iliac artery measured 1.42 x 1.85 CONCLUSIONS 1. Fusiform aneurysm of the distal abdominal aorta measuring 3.89 x 4.34 cm. 2. Ectatic proximal common iliac arteries measuring 1.53 x 1.83 on the right and 1.42 x 1.85 on the left 3. Mild diffuse plaques in the abdomen aorta. No similar previous studies are available for comparison Dr Priscila Villa MD [facility] (Electronically Signed) Final Date: 25 March 2023 20:27 S
== END 2023-03-24 10:48 | disposition home or self-care (01) ==
LOC: RAD 10:48
PROVIDERS: PCP Family Medicine; Visit Provider Family Medicine
DX: I71.40 Abdominal aortic aneurysm, without rupture, unspecified (principal); I70.0 Atherosclerosis of aorta
CPT/HCPCS: 93978

== ENCOUNTER → 2023-06-19 13:06 | Outpatient (BNVA) | payer OTHER, SELFPAY | PROVIDERS: PCP Family Medicine; Visit Provider Nurse Practitioner Family | DX: Z85.828 Personal history of other malignant neoplasm of skin (principal); L57.0 Actinic keratosis; L72.0 Epidermal cyst; L81.4 Other melanin hyperpigmentation; D36.14 Benign neoplasm of peripheral nerves and autonomic nervous system of thorax; D22.5 Melanocytic nevi of trunk; L85.3 Xerosis cutis; D69.2 Other nonthrombocytopenic purpura | CPT/HCPCS: 17000; 99213 ==

== ENCOUNTER 2023-08-28 11:14 | Outpatient (CLI) | payer OTHER, SELFPAY ==
[2023-09-02 07:50] LABS: Plasma Renin Activity LC/MS/MS 0.47 ng/mL/h (0.25-5.82)
== END 2023-08-28 11:15 | disposition home or self-care (01) ==
LOC: LAB 11:16
PROVIDERS: PCP Family Medicine; Visit Provider Internal Medicine
DX: D35.00 Benign neoplasm of unspecified adrenal gland (principal)
CPT/HCPCS: 36415; 82088; 84244

== ENCOUNTER 2023-08-29 13:36 | Outpatient (CLI) | payer OTHER, SELFPAY ==
[2023-08-29 14:29] LABS: Total Volume Urine 1175 ml
[2023-08-29 14:47] LABS: Creatinine 24 Hour Urine 1574.5 mg/dL (955-2936); Urine Creatinine 134 mg/dL (39-259)
[2023-09-02 16:00] LABS: Free Cortisol Urine 22.7 mcg/24 h (4.0-50.0); Total Urine 1175 mL; Urine Creatinine 1.48 g/24 h (0.50-2.15)
[2023-09-06 23:20] LABS: Calculated Total (E+NE) 33 mcg/24 h (26-121)
== END 2023-08-29 13:37 | disposition home or self-care (01) ==
LOC: LAB 13:36
PROVIDERS: PCP Family Medicine; Visit Provider Internal Medicine
DX: D35.00 Benign neoplasm of unspecified adrenal gland (principal)
CPT/HCPCS: 82384; 82530; 82570

== ENCOUNTER → 2023-09-09 11:33 | Outpatient (BNVA) | payer OTHER, SELFPAY | PROVIDERS: PCP Family Medicine; Visit Provider Internal Medicine | DX: D35.00 Benign neoplasm of unspecified adrenal gland (principal); E27.9 Disorder of adrenal gland, unspecified | CPT/HCPCS: 99214 ==

== ENCOUNTER 2023-11-29 22:29 | Emergency (ER) | payer OTHER, SELFPAY ==
[2023-11-29 22:29] VITALS: BP 150/100; PULSE 99; RESP 18; TEMP 37.6; O2SAT 95; BMI 22.8
--- NOTE | 2023-11-29 22:55 | XRR_ITS ---
PROCEDURE INFORMATION: Exam: XR Chest Exam date and time: 11/29/2023 11:04 PM Age: 73 years old Clinical indication: Prior surgery; Surgery date: 6+ months; Surgery type: Cabg; Patient HX: Generalized weakness TECHNIQUE: Imaging protocol: Radiologic exam of the chest. Views: 1 view. COMPARISON: CR XR chest 1V portable [id number] 10/06/2021 12:03 AM FINDINGS: Lungs: Low lung volumes accentuate bronchovascular markings and cardiac silhouette. No consolidation. Pleural spaces: No pleural effusion. No pneumothorax. Heart/Mediastinum: Operative changes of the heart and mediastinum. No cardiomegaly. Bones/joints: No acute fracture. Other findings: Atheromatous changes are seen projecting over the expected location of the bilateral carotid bifurcations. XR/XR chest 1V portable [id number] IMPRESSION: No acute cardiopulmonary findings.
--- NOTE | 2023-11-29 22:55 | CTR_ITS ---
PROCEDURE INFORMATION: Exam: CT Head Without Contrast Exam date and time: 11/29/2023 11:14 PM Age: 73 years old Clinical indication: Patient HX: C/O general weakness TECHNIQUE: Imaging protocol: Computed tomography of the head without contrast. Radiation optimization: All CT scans at this facility use at least one of these dose optimization techniques: automated exposure control; mA and/or kV adjustment per patient size (includes targeted exams where dose is matched to clinical indication); or iterative reconstruction. COMPARISON: No relevant prior studies available. RADIATION DOSE METRICS: Total DLP (mGy-cm): 1115.08 FINDINGS: Brain: No acute intracranial hemorrhage, abnormal extra-axial fluid collection, mass effect, or midline shift. Mild to moderate periventricular and subcortical white matter hypodensities. Cerebral ventricles: The ventricular system is within normal limits of variation for the patient's age. Paranasal sinuses: Visualized paranasal sinuses are grossly unremarkable. No air fluid levels. Mastoid air cells: Trace bilateral mastoid effusions. Bones/joints: No acute fracture. Soft tissues: Grossly unremarkable. Vasculature: Atheromatous changes are seen within the intracranial portions of the bilateral internal carotid arteries and V4 segments of the bilateral vertebral arteries. CT/CT head wo con* [id number] IMPRESSION: 1. No acute intracranial hemorrhage. 2. Mild to moderate periventricular and subcortical white matter hypodensities, findings are most compatible with changes of mild to moderate burden chronic small-vessel disease however cannot exclude superimposed acute on chronic ischemic changes as there are no prior exams available for comparison. Correlate and follow-up as clinically indicated. 3. Chronic/incidental findings as described above.
--- NOTE | 2023-11-29 22:57 | ECG_ITS ---
[facility] Test Date: 2023-11-29 Pat Name: Ronnie Rob Department: Room: Gender: Male Senior Embedded Software Engineer: : 1950 Requested By: Garett Bazan Order Number: [id number] Aguirre MD: Priscila Villa M.D. Measurements Intervals [place] Rate: 96 P: 0 [place]: 0 QRS: -31 QRSD: 95 T: 62 QT: 314 QTc: 398 Interpretive Statements ATRIAL FIBRILLATION LEFT AXIS DEVIATION [QRS AXIS < -30] NONSPECIFIC T-WAVE ABNORMALITY Compared to ECG 10/02/2021 23:02:28 Left-axis deviation now present T-wave abnormality now present Sinus rhythm no longer present Electronically Signed On 11-30-2023 22:42:38 CDT by Priscila Villa M.D. [id number]
[2023-11-29] MEDS: sodium chloride 0.9% 1,000 ML 999 ML IV (23:01)
[2023-11-29 23:02] VITALS: BP 143/77; PULSE 107; RESP 18; O2SAT 95
[2023-11-29 23:02] LABS: Basophils # 0.1 10^3/uL (0.0-0.1); Basophils % 0.2 %; Hematocrit 44.2 % (37-53); Lymphocytes # 0.6 10^3/uL (0.8-4.8); Lymphocytes % 2.6 %; Mean Corpuscular HGB Conc 33.3 g/dL (30-55); Mean Corpuscular Volume 99.1 fl (82-101); Mean Platelet Volume 9.8 fL (7.4-10.4); Monocytes # 2.5 10^3/uL (0.2-0.9); Monocytes % 11.6 %; Neutrophils # 18.16 10^3/uL (1.8-7.7); Neutrophils % 84.9 %; Nucleated Red Blood Cells % 0 %; Platelet Count 183 10^3/cmm (157-399); Red Blood Count 4.46 10^6/uL (3.85-5.65); Red Cell Distribution Width 12.9 % (12.1-15.1); White Blood Count 21.38 10^3/uL (3.29-11.43)
[2023-11-29 23:21] LABS: Add Urine Microscopic? YES; Bacteria Urine 1+ /hpf; Bilirubin Urine Neg (Negative); Blood Urine Trace (Negative); Fine Granular Casts Urine 0-4 /lpf; Glucose Urine UA Norm (Normal); Ketones Urine 1+ (Negative); Leukocyte Esterase Urine Negative (Negative); Mucus Urine 2+ /hpf; Nitrate Urine Negative (Negative); Protein Urine 1+ (Negative); RBC Urine 0-4 /hpf (0-2); Squamous Epithelial Cell Urine 0-4 /hpf (0-5); Urine Appearance SL Hazy (CLEAR); Urine Color Dark Yellow (Yellow); Urobilinogen Urine 1 mg/dL (Negative); WBC Urine 0-4 /hpf (0-5); pH Urine 5 (5-7)
[2023-11-29 23:23] LABS: Amorphous Sediment Urine 2+ /hpf
[2023-11-29 23:24] LABS: Alanine Aminotransferase 6 U/L (0-41); Albumin Level 3.7 g/dL (3.5-5.2); Alkaline Phosphatase 81 U/L (40-130); Anion Gap 18.3 (5-19); Aspartate Amino Transferase 10 U/L (0-40); Blood Urea Nitrogen 21 mg/dL (8-23); C Reactive Protein 127.1 mg/L (0.0-4.9); Calcium 8.7 mg/dL (8.5-10.5); Carbon Dioxide 20 mmol/L (22-29); Chloride 101 mmol/L (98-107); Creatinine Clr Calc Pharmacy 38.0378; Globulin 3.5 g/dL (1.3-4.6); Glucose 162 mg/dL (65-115); Magnesium 1.5 mg/dL (1.7-2.3); Osmolality Calculated 287 mOsm/kg (285-295); Potassium 4.3 mmol/L (3.5-5.1); Sodium 135 mmol/L (136-145); Thyroid Stimulating Hormone 0.52 uIU/mL (0.27-4.20); Total Bilirubin 0.6 mg/dL (0.15-1.2); Total Protein 7.2 g/dL (6.6-8.7)
[2023-11-29 23:25] LABS: Alcohol Level < 10 mg/dL (0-10)
[2023-11-29 23:32] VITALS: BP 150/83; PULSE 94; RESP 20; O2SAT 97
--- NOTE | 2023-11-29 23:36 | W.ED.WEAKNES ---
HPI - Weakness General: Chief complaint: Weakness Stated complaint: weakness Time Seen by Provider: 11/29/23 22:42 History of Present Illness: 73-year-old male who presents with generalized weakness. He notes that around 7 PM he slid out of his chair onto the ground and could not get up. He asked his to help him, but she could not get him up either. They called an ambulance. He does not complain of any specific pain. He did not hit his head. He does note that he has been dealing with sinus problems for the last month or so. Has been taking decongestants. He denies fever. He has had a cough with his sinus congestion. Some clear sputum. No significant shortness of breath. Associated symptoms: Denies chest pain, fever(s) or vomiting Review of Systems Const: Denies: fever(s) Eyes: Denies: change in vision ENMT: Reports: nasal congestion, post nasal drip and sinus pain; Denies: throat pain or ear or mastoid pain Card: Denies: chest pain Resp: Reports: productive cough; Denies: dyspnea or wheezing GI: Denies: abdominal pain, vomiting or diarrhea Skin/Breast: Denies: rash PFSH ED PFSH: Medical History History of nonmelanoma skin cancer Benign essential HTN High cholesterol Diabetes Aneurysm Heart attack Enlarged prostate Kidney stones Diverticulitis Hydrocele Cataract Agent orange exposure Surgical History History of open heart surgery Stented coronary artery Family History Father H/O asbestos exposure Mother Cancer Social History Smoking and tobacco/nicotine status: current every day tobacco/nicotine user Quit status (tobacco/nicotine): not considering quitting Second hand smoke exposure: Yes Alcohol intake: never Substance/Drug Use: never Adopted: No Caregiver/support person: No Lives independently: Yes Household members: spouse Housing: House Marital status: Number of children: 4 Highest education level completed: Some College, No Degree service: Yes Current occupational status: retired Physical Exam Const: COMMON NORMALS: no acute distress GENERAL APPEARANCE: cooperative and frail appearing; not ill appearing HENMT: COMMON NORMALS: normocephalic, atraumatic and Normal external nose present HEAD & SCALP: normocephalic and atraumatic FACE & SINUS: normal facial exam and face symmetric NOSE: Normal external nose present Eye: COMMON NORMALS: Equal, round and reactive pupils present and EOMs intact bilaterally PUPIL: Yes Equal, round and reactive pupils present Neck/C-Spine: GENERAL: Yes trachea midline Chest: CHEST: Yes Symmetrical chest wall rise Resp: COMMON NORMALS: normal respiratory effort, No retractions, No use of accessory muscles and clear to auscultation bilaterally AUSCULTATION: clear to auscultation bilaterally Cardio: COMMON NORMALS: regular rate and regular rhythm RATE: regular rate RHYTHM: regular rhythm GI: COMMON NORMALS: Normal to inspection, nondistended, normoactive bowel sounds present Extremity: COMMON NORMALS: no pedal edema Neuro: MARINE COMA SCALE: document GCS findings [place] coma scale eye opening: Spontaneous [place] coma scale verbal response: Orientated [place] coma scale motor response: [place]bey commands Marine coma scale total score: 15 SENSORY EXAM: Yes extremities (intact) Psych: COMMON NORMALS: speech normal SPEECH: Yes normal speech Skin: COMMON NORMALS: no rashes or lesions noted GENERAL SKIN EXAM: no rashes or lesions noted Course Vital Signs: Vital signs: Vital Signs Temperature 99.6 F 11/29/23 22:29 Pulse Rate 94 11/30/23 01:14 Respiratory Rate 16 11/30/23 01:14 Blood Pressure 140/70 11/30/23 01:14 Pulse Oximetry 96 11/30/23 01:14 Oxygen Delivery Me thod Room Air 11/29/23 22:29 MDM - Weakness Medical Decision Making 73-year-old gentleman with generalized weakness. His NIH scale is 0. He has a mild temperature of 99.6. White blood cell count is 21. He has had high white counts in the past. Bicarbonate level is 20, creatinine is 1.7. He has received fluid here. He has been up and walking. Symptoms seem to be resolved. No cause of leukocytosis, temperature, etc. were found. His urinalysis is negative. Chest x-ray is negative. Head CT is negative. He will be allowed discharge. Close outpatient follow-up. Lab Data 11/29/23 22:43 11/29/23 22:43 Radiology Impressions Chest X-Ray 11/29/23 22:55 IMPRESSION: No acute cardiopulmonary findings. Head CT 11/29/23 22:55 IMPRESSION: 1. No acute intracranial hemorrhage. 2. Mild to moderate periventricular and subcortical white matter hypodensities, findings are most compatible with changes of mild to moderate burden chronic small-vessel disease however cannot exclude superimposed acute on chronic ischemic changes as there are no prior exams available for comparison. Correlate and follow-up as clinically indicated. 3. Chronic/incidental findings as described above. Laboratory Results WBC 21.38 10^3/uL (3.29-11.43) H 11/29/23 22:43 RBC 4.46 10^6/uL (3.85-5.65) 11/29/23 22:43 Hgb 14.70 g/dL (11.27-16.99) 11/29/23 22:43 Hct 44.2 % (37-53) 11/29/23 22:43 MCV 99.1 fl (82-101) 11/29/23 22:43 MCH 33.0 pg (27-33) 11/29/23 22:43 MCHC 33.3 g/dL (30-55) 11/29/23 22:43 RDW 12.9 % (12.1-15.1) 11/29/23 22:43 Plt Count 183 10^3/cmm (157-399) 11/29/23 22:43 MPV 9.8 fL (7.4-10.4) 11/29/23 22:43 Neut % (Auto) 84.9 % 11/29/23 22:43 Lymph % (Auto) 2.6 % 11/29/23 22:43 [place] % (Auto) 11.6 % 11/29/23 22:43 Eos % (Auto) 0.0 % 11/29/23 22:43 Baso % (Auto) 0.2 % 11/29/23 22:43 Neut # (Auto) 18.16 10^3/uL (1.8-7.7) H 11/29/23 22:43 Lymph # (Auto) 0.6 10^3/uL (0.8-4.8) L 11/29/23 22:43 [place]y # (Auto) 2.5 10^3/uL (0.2-0.9) H 11/29/23 22:43 Eos # (Auto) 0.0 10^3/uL (0.0-0.8) 11/29/23 22:43 Baso # (Auto) 0.1 10^3/uL (0.0-0.1) 11/29/23 22:43 Nucleated RBC % (auto) 0 % 11/29/23 22:43 Nucleated RBCs # 0.0 /100WBC 11/29/23 22:43 Sodium 135 mmol/L (136-145) L 11/29/23 22:43 Potassium 4.3 mmol/L (3.5-5.1) 11/29/23 22:43 Chloride 101 mmol/L (98-107) 11/29/23 22:43 Carbon Dioxide 20 mmol/L (22-29) L 11/29/23 22:43 Anion Gap 18.3 (5-19) 11/29/23 22:43 BUN 21 mg/dL (8-23) 11/29/23 22:43 Creatinine 1.7 mg/dL (0.7-1.2) H 11/29/23 22:43 GFR Calculation Not Reportable 11/29/23 22:43 Glucose 162 mg/dL (65-115) H 11/29/23 22:43 Calculated Osmolality 287 mOsm/kg (285-295) 11/29/23 22:43 Lactic Acid 2.0 mmol/L (0.5-2.2) 11/29/23 22:43 Calcium 8.7 mg/dL (8.5-10.5) 11/29/23 22:43 Magnesium 1.5 mg/dL (1.7-2.3) L 11/29/23 22:43 Total Bilirubin 0.6 mg/dL (0.15-1.2) 11/29/23 22:43 AST 10 U/L (0-40) 11/29/23 22:43 ALT 6 U/L (0-41) 11/29/23 22:43 Alkaline Phosphatase 81 U/L (40-130) 11/29/23 22:43 C-Reactive Protein 127.1 mg/L (0.0-4.9) H 11/29/23 22:43 Total Protein 7.2 g/dL (6.6-8.7) 11/29/23 22:43 Albumin 3.7 g/dL (3.5-5.2) 11/29/23 22:43 Globulin 3.5 g/dL (1.3-4.6) 11/29/23 22:43 TSH 0.52 uIU/mL (0.27-4.20) 11/29/23 22:43 Urine Color Dark yellow (Yellow) 11/29/23 23:05 Urine Appearance Sl hazy (CLEAR) A 11/29/23 23:05 Urine pH 5 (5-7) 11/29/23 23:05 Ur Specific [place] 1.020 (1.005-1.030) 11/29/23 23:05 Urine Protein 1+ (Negative) H 11/29/23 23:05 Urine Glucose (UA) Norm (Normal) 11/29/23 23:05 Urine Ketones 1+ (Negative) H 11/29/23 23:05 Urine Blood Trace (Negative) H 11/29/23 23:05 Urine Nitrate Negative (Negative) 11/29/23 23:05 Urine Bilirubin Neg (Negative) 11/29/23 23:05 Urine Urobilinogen 1 mg/dL (Negative) H 11/29/23 23:05 Ur Leukocyte Esterase Negative (Negative) 11/29/23 23:05 Urine RBC 0-4 /hpf (0-2) H 11/29/23 23:05 Urine WBC 0-4 /hpf (0-5) H 11/29/23 23:05 Ur Squamous Epith Cells 0-4 /hpf (0-5) H 11/29/23 23:05 Amorphous Sediment 2+ /hpf 11/29/23 23:05 Urine Bacteria 1+ /hpf (NONE) H 11/29/23 23:05 Hyaline Casts 5-10 /lpf H 11/29/23 23:05 Fine Granular Casts 0-4 /lpf H 11/29/23 23:05 Urine Mucus 2+ /hpf 11/29/23 23:05 Ethyl Alcohol < 10 mg/dL (0-10) 11/29/23 22:43 Adenovirus (PCR) Not detected (NOT DETECT) 11/29/23 23:05 C. pneumoniae DNA (PCR) Not detected (NOT DETECT) 11/29/23 23:05 Coronavirus 229E (PCR) Not detected (NOT DETECT) 11/29/23 23:05 Human Metapneumovir PCR Not detected (NOT DETECT) 11/29/23 23:05 Influenza A (H1) PCR Not detected (NOT DETECT) 11/29/23 23:05 Influ A (H1/09) PCR Not detected (NOT DETECT) 11/29/23 23:05 Influenza A (H3) PCR Not detected (NOT DETECT) 11/29/23 23:05 Influenza Type A (PCR) Not detected (NOT DETECT) 11/29/23 23:05 Influenza Type B (PCR) Not detected (NOT DETECT) 11/29/23 23:05 M. pneumoniae (PCR) Not detected (NOT DETECT) 11/29/23 23:05 Parainfluenza 1 (PCR) Not detected (NOT DETECT) 11/29/23 23:05 Parainfluenza 2 (PCR) Not detected (NOT DETECT) 11/29/23 23:05 Parainfluenza 3 (PCR) Not detected (NOT DETECT) 11/29/23 23:05 Parainfluenza 4 (PCR) Not detected (NOT DETECT) 11/29/23 23:05 RSV Type A (PCR) Not detected (NOT DETECT) 11/29/23 23:05 RSV Type B (PCR) Not detected (NOT DETECT) 11/29/23 23:05 Entero/Rhino (PCR) Not detected (NOT DETECT) 11/29/23 23:05 SARS-CoV-2 (PCR) Not detected (NOT DETECT) 11/29/23 23:05 All radiology interpretation(s) finalized by discharge Discharge Plan Discharge Patient Disposition: Home Clinical Impression: Weakness, Acute dehydration Condition: Stable Prescriptions: No Action clopidogrel 75 mg tablet 75 mg PO DAILY carvedilol 12.5 mg tablet 12.5 mg PO ONCE Rx Instructions: must administer with a meal/food cholecalciferol (vitamin D3) 50 mcg (2,000 unit) capsule 50 mcg PO DAILY amlodipine 10 mg tablet 10 mg PO DAILY metformin 750 mg tablet extended release 24 hr 750 mg PO DAILY folic acid 1 mg tablet 1 mg PO DAILY aspirin 81 mg tablet,delayed release (DR/EC) 81 mg PO DAILY Glucosamine-Fish Oil 500-400-5 mg-mg-unit capsule PO BID ascorbic acid (vitamin C) 1,000 mg tablet 1 g PO DAILY lisinopril 40 mg tablet 60 mg PO DAILY cetirizine [Zyrtec] 10 mg tablet 10 mg PO DAILY PRN metoprolol succinate 25 mg tablet extended release 24 hr 25 mg PO BID coenzyme Q10 [Co Q-10] 100 mg capsule 100 mg PO DAILY famotidine 10 mg tablet 10 mg PO DAILY Miralax 17 gram/dose powder 17 g PO DAILY PRN (Reason: constipation) Qty: 238 0RF Discharge Orders: Discharge ED (Routine); Ordered 11/30/23 Ordered By: Garett Park Referrals: Maria Del Rosario Culp MD [Primary Care Provider] - 1-3 days Patient Instructions: Dehydration (ED), Weakness (ED), Opioid Safety, Pain Management Activity Restrictions/Additional Instructions: Drink plenty of fluids, especially for the next 24 to 48 hours. Monitor your temperature. Return for worsening weakness, shortness of breath, mental status changes, other concerning symptoms. See your doctor next week. Coding Level of Care Code ED C D Area Supervisor for Cara Knight NIH stroke score NIHSS Level Of Consciousness - 1a: 0 Level Of Consciousness Questions - 1b: Both Correct Level Of Consciousness Commands - 1c: Both Correct Best Gaze - 2: Normal Visual Nascimento - 3: No Visual Loss Facial Palsy - 4: Normal Motor Arm Right - 5: No Drift Motor Arm Left - 5: No Drift Motor Leg Right - 6: No Drift Motor Leg Left - 6: No Drift Limb Ataxia - 7: Absent Sensory - 8: Normal Best Language - 9: No Aphasia Dysarthia - 10: Normal Extinction And Inattention - 11: 0 Score Total Score: 0
[2023-11-30 00:30] VITALS: BP 138/69; PULSE 97; RESP 18; O2SAT 94
[2023-11-30] MEDS: cefTRIAXone 1,000 MG in sodium chloride 0.9% (plus) 50 ML 100 MG IV (00:37)
[2023-11-30 00:58] LABS: Adenovirus Not Detected (NOT DETECT); Chlamydia Pneumoniae Not Detected (NOT DETECT); Coronavirus 229E,HKU1,NL63,OC4 Not Detected (NOT DETECT); Human Metapneumovirus Not Detected (NOT DETECT); Human Rhinovirus/Enterovirus Not Detected (NOT DETECT); Influenza A Not Detected (NOT DETECT); Influenza A H1 Not Detected (NOT DETECT); Influenza A H1-2009 Not Detected (NOT DETECT); Influenza A H3 Not Detected (NOT DETECT); Influenza B Not Detected (NOT DETECT); Mycoplasma Pneumoniae Not Detected (NOT DETECT); Parainfluenza Virus Type 1 Not Detected (NOT DETECT); Parainfluenza Virus Type 2 Not Detected (NOT DETECT); Parainfluenza Virus Type 3 Not Detected (NOT DETECT); Parainfluenza Virus Type 4 Not Detected (NOT DETECT); Respiratory Syncytial Virus A Not Detected (NOT DETECT); Respiratory Syncytial Virus B Not Detected (NOT DETECT); SARS-COV-2 Not Detected (NOT DETECT)
[2023-11-30 01:14] VITALS: BP 140/70; PULSE 94; RESP 16; O2SAT 96
== END 2023-11-30 01:44 | disposition home or self-care (01) ==
PROVIDERS: Emergency Provider Emergency Medicine; PCP Family Medicine
DX: R53.1 Weakness (principal); E86.0 Dehydration; Z79.02 Long term (current) use of antithrombotics/antiplatelets; Z79.82 Long term (current) use of aspirin; Z11.52 Encounter for screening for COVID-19; Z72.0 Tobacco use; I10 Essential (primary) hypertension; E11.9 Type 2 diabetes mellitus without complications
CPT/HCPCS: 70450; 71045; 80053; 80307; 81001; 83605; 83735; 84443; 85025; 86140; 87486; 87581; 87633; 93005; 96361; 96365; 99285; J0696; J7030

== ENCOUNTER 2023-12-05 11:10 | Outpatient (CLI) | payer MEDICARE, SELFPAY ==
[2023-12-05 11:35] LABS: Basophils # 0.1 10^3/uL (0.0-0.1); Basophils % 0.6 %; Eosinophils # 0.1 10^3/uL (0.0-0.8); Eosinophils % 1.2 %; Hematocrit 45.3 % (37-53); Lymphocytes # 2.4 10^3/uL (0.8-4.8); Lymphocytes % 20.8 %; Mean Corpuscular HGB Conc 33.1 g/dL (30-55); Mean Corpuscular Volume 99.8 fl (82-101); Mean Platelet Volume 9.1 fL (7.4-10.4); Monocytes # 1.3 10^3/uL (0.2-0.9); Neutrophils # 7.53 10^3/uL (1.8-7.7); Nucleated Red Blood Cells % 0 %; Platelet Count 276 10^3/cmm (157-399); Red Blood Count 4.54 10^6/uL (3.85-5.65); Red Cell Distribution Width 12.9 % (12.1-15.1); White Blood Count 11.42 10^3/uL (3.29-11.43)
[2023-12-05 11:42] LABS: Bilirubin Urine Neg (Negative); Blood Urine Neg (Negative); Glucose Urine UA Norm (Normal); Ketones Urine Negative (Negative); Leukocyte Esterase Urine Trace (Negative); Nitrate Urine Negative (Negative); Protein Urine Neg (Negative); Specific Gravity, Urine 1.015 (1.005-1.030); Urine Appearance Clear (CLEAR); Urine Color Yellow (Yellow); Urobilinogen Urine Norm (Negative); pH Urine 5 (5-7)
[2023-12-05 11:43] LABS: Add Urine Culture? No; Bacteria Urine TRACE /hpf; RBC Urine 0-4 /hpf (0-2); Squamous Epithelial Cell Urine 0-4 /hpf (0-5); WBC Urine 0-4 /hpf (0-5)
[2023-12-05 11:54] LABS: Anion Gap 13.3 (5-19); Blood Urea Nitrogen 23 mg/dL (8-23); Calcium 9.2 mg/dL (8.5-10.5); Carbon Dioxide 25 mmol/L (22-29); Chloride 105 mmol/L (98-107); Glucose 113 mg/dL (65-115); Phosphorus 3.4 mg/dL (2.5-4.5); Potassium 4.3 mmol/L (3.5-5.1); Sodium 139 mmol/L (136-145)
[2023-12-05 11:56] LABS: Calcium 9.2 mg/dL (8.5-10.5)
[2023-12-05 12:02] LABS: Parathyroid Hormone 32.3 pg/mL (15-65)
[2023-12-05 12:11] LABS: 25 Hydroxy Vitamin D 55 ng/mL (30-100)
[2023-12-05 12:15] LABS: Creatinine Urine, Random 101 mg/dL (39-259); Microalbum Creatinine Ratio Ur 20 mg/dL (0-20); Microalbumin Random Urine 2 ug/dL (0-20)
== END 2023-12-05 11:11 | disposition home or self-care (01) ==
PROVIDERS: PCP Family Medicine; Visit Provider Family Medicine
DX: E27.9 Disorder of adrenal gland, unspecified (principal); D35.00 Benign neoplasm of unspecified adrenal gland; Z79.899 Other long term (current) drug therapy
CPT/HCPCS: 36415; 80069; 81001; 82044; 82306; 82310; 83970; 85025

== ENCOUNTER → 2023-12-18 14:18 | Outpatient (BNVA) | payer OTHER, SELFPAY | PROVIDERS: PCP Family Medicine; Visit Provider Nurse Practitioner Family | DX: L81.4 Other melanin hyperpigmentation (principal); L57.8 Other skin changes due to chronic exposure to nonionizing radiation; D36.14 Benign neoplasm of peripheral nerves and autonomic nervous system of thorax; L85.3 Xerosis cutis; D69.2 Other nonthrombocytopenic purpura; D48.5 Neoplasm of uncertain behavior of skin; Z85.828 Personal history of other malignant neoplasm of skin | CPT/HCPCS: 11102; 99213 ==

== ENCOUNTER 2023-12-22 13:48 | Outpatient (CLI) | payer OTHER, SELFPAY ==
--- NOTE | 2023-12-22 13:53 | US_ITS ---
WS: [id number] RENAL ULTRASOUND HISTORY: STAGE 3A CHRONIC KIDNEY DZ COMPARISON: None available. TECHNIQUE: 2-D and color Doppler imaging of the kidney submitted. Right kidney: 9.5 cm x 4.3 cm x 5.1 cm. Cortex: 1.2 cm Normal echogenicity with no hydronephrosis or mass. Left kidney: 9.9 cm x 4.5 cm x 4.7 cm. Cortex: 1.0 cm Normal echogenicity with no hydronephrosis or mass. Aorta: Atherosclerotic aorta. Maximum diameter 4.2 cm. Urinary Bladder: Minimally distended bladder. Prostate gland is enlarged with calcifications. US/US renal BI* [id number] IMPRESSION: 1. No hydronephrosis or significant atrophy. 2. Abdominal aortic aneurysm 4.2 cm. Aneurysm was also described on the prior CT of 10/06/2021.
== END 2023-12-22 13:49 | disposition home or self-care (01) ==
LOC: RAD 13:48
PROVIDERS: PCP Family Medicine; Visit Provider Internal Medicine
DX: N18.31 Chronic kidney disease, stage 3a (principal); I71.40 Abdominal aortic aneurysm, without rupture, unspecified
CPT/HCPCS: 76770

== ENCOUNTER 2023-12-25 12:10 | Outpatient (CLI) | payer OTHER, SELFPAY ==
[2023-12-25 12:53] LABS: Add Urine Microscopic? NO; Charge for UA Resulting for Rev
[2023-12-25 13:21] LABS: Bilirubin Urine Neg (Negative); Blood Urine Neg (Negative); Glucose Urine UA Norm (Normal); Ketones Urine Negative (Negative); Leukocyte Esterase Urine Negative (Negative); Nitrate Urine Negative (Negative); Protein Urine Neg (Negative); Urine Appearance Clear (CLEAR); Urine Color Yellow (Yellow); Urobilinogen Urine 1 mg/dL (Negative); pH Urine 6.5 (5-7)
== END 2023-12-25 12:11 | disposition home or self-care (01) ==
LOC: LAB 12:10
PROVIDERS: PCP Family Medicine; Visit Provider Internal Medicine
DX: D35.00 Benign neoplasm of unspecified adrenal gland (principal); E27.9 Disorder of adrenal gland, unspecified
CPT/HCPCS: 81003

== ENCOUNTER 2024-03-29 09:57 | Outpatient (CLI) | payer OTHER, SELFPAY ==
[2024-03-29 10:42] LABS: Albumin Level 4.2 g/dL (3.5-5.2); Anion Gap 15.7 (5-19); Blood Urea Nitrogen 26 mg/dL (8-23); Calcium 9.3 mg/dL (8.5-10.5); Carbon Dioxide 22 mmol/L (22-29); Chloride 106 mmol/L (98-107); Glucose 126 mg/dL (65-115); Phosphorus 2.5 mg/dL (2.5-4.5); Potassium 4.7 mmol/L (3.5-5.1); Sodium 139 mmol/L (136-145)
[2024-03-29 10:44] LABS: Creatinine Urine, Random 133 mg/dL (39-259); Microalbum Creatinine Ratio Ur 23 mg/dL (0-20); Microalbumin Random Urine 3 ug/dL (0-20)
[2024-03-29 10:55] LABS: Parathyroid Hormone 40.6 pg/mL (15-65)
[2024-03-29 12:49] LABS: Calcium 9.3 mg/dL (8.5-10.5)
== END 2024-03-29 09:58 | disposition home or self-care (01) ==
LOC: LAB 10:04
PROVIDERS: PCP Family Medicine; Visit Provider Internal Medicine
DX: N18.31 Chronic kidney disease, stage 3a (principal)
CPT/HCPCS: 36415; 80069; 82044; 82310; 83970

== ENCOUNTER 2024-09-28 11:26 | Outpatient (CLI) | payer OTHER, SELFPAY ==
[2024-09-28 12:07] LABS: Basophils # 0.1 10^3/uL (0.0-0.1); Basophils % 0.7 %; Eosinophils # 0.2 10^3/uL (0.0-0.8); Eosinophils % 2.4 %; Hematocrit 45.8 % (37-53); Lymphocytes # 1.8 10^3/uL (0.8-4.8); Lymphocytes % 19.3 %; Mean Corpuscular HGB Conc 32.3 g/dL (30-55); Mean Corpuscular Hemoglobin 32.5 pg (27-33); Mean Corpuscular Volume 100.7 fl (82-101); Mean Platelet Volume 9.5 fL (7.4-10.4); Monocytes # 1.1 10^3/uL (0.2-0.9); Monocytes % 12.1 %; Neutrophils # 5.96 10^3/uL (1.8-7.7); Neutrophils % 65.2 %; Nucleated Red Blood Cells % 0 %; Platelet Count 217 10^3/cmm (157-399); Red Blood Count 4.55 10^6/uL (3.85-5.65); Red Cell Distribution Width 12.8 % (12.1-15.1); White Blood Count 9.15 10^3/uL (3.29-11.43)
[2024-09-28 12:28] LABS: Albumin Level 4.1 g/dL (3.5-5.2); Anion Gap 13.8 (5-19); Blood Urea Nitrogen 27 mg/dL (8-23); Calcium 9.2 mg/dL (8.5-10.5); Calcium 9.3 mg/dL (8.5-10.5); Carbon Dioxide 22 mmol/L (22-29); Chloride 108 mmol/L (98-107); Glucose 125 mg/dL (65-115); Phosphorus 3.4 mg/dL (2.5-4.5); Potassium 4.8 mmol/L (3.5-5.1); Sodium 139 mmol/L (136-145)
[2024-09-28 12:34] LABS: Creatinine Urine, Random 104 mg/dL (39-259); Microalbum Creatinine Ratio Ur 19 mg/dL (0-20); Microalbumin Random Urine 2 ug/dL (0-20)
[2024-09-28 12:43] LABS: 25 Hydroxy Vitamin D 55 ng/mL (30-100)
== END 2024-09-28 11:27 | disposition home or self-care (01) ==
LOC: LAB 11:30
PROVIDERS: PCP Family Medicine; Visit Provider Registered Nurse
DX: N18.31 Chronic kidney disease, stage 3a (principal); E55.9 Vitamin D deficiency, unspecified
CPT/HCPCS: 36415; 80069; 82044; 82306; 82310; 83970; 85025

== ENCOUNTER → 2024-12-20 13:40 | Outpatient (BNVA) | payer OTHER, SELFPAY | PROVIDERS: PCP Family Medicine; Visit Provider Nurse Practitioner Family | DX: L82.1 Other seborrheic keratosis (principal); D69.2 Other nonthrombocytopenic purpura; Z08 Encounter for follow-up examination after completed treatment for malignant neoplasm; Z85.828 Personal history of other malignant neoplasm of skin; L57.0 Actinic keratosis | CPT/HCPCS: 17000; 99213 ==

== ENCOUNTER 2025-01-31 11:50 | Outpatient (CLI) | payer OTHER, SELFPAY ==
[2025-01-31 13:07] LABS: Basophils # 0.1 10^3/uL (0.0-0.1); Basophils % 0.8 %; Eosinophils # 0.3 10^3/uL (0.0-0.8); Eosinophils % 2.8 %; Hematocrit 45.8 % (37-53); Lymphocytes # 2.4 10^3/uL (0.8-4.8); Mean Corpuscular HGB Conc 32.5 g/dL (30-55); Mean Corpuscular Hemoglobin 33.2 pg (27-33); Mean Platelet Volume 9.5 fL (7.4-10.4); Monocytes # 1.3 10^3/uL (0.2-0.9); Monocytes % 12.2 %; Neutrophils # 6.32 10^3/uL (1.8-7.7); Neutrophils % 60.9 %; Nucleated Red Blood Cells % 0 %; Platelet Count 224 10^3/cmm (157-399); Red Blood Count 4.49 10^6/uL (3.85-5.65); Red Cell Distribution Width 12.8 % (12.1-15.1); White Blood Count 10.36 10^3/uL (3.29-11.43)
[2025-01-31 13:27] LABS: Albumin Level 4.3 g/dL (3.5-5.2); Anion Gap 18.3 (5-19); Blood Urea Nitrogen 31 mg/dL (8-23); Calcium 9.7 mg/dL (8.5-10.5); Carbon Dioxide 21 mmol/L (22-29); Chloride 103 mmol/L (98-107); Glucose 97 mg/dL (65-115); Phosphorus 2.8 mg/dL (2.5-4.5); Potassium 4.3 mmol/L (3.5-5.1); Sodium 138 mmol/L (136-145)
[2025-01-31 13:29] LABS: Creatinine Urine, Random 38 mg/dL (39-259); Microalbum Creatinine Ratio Ur 26 mg/dL (0-20); Microalbumin Random Urine 1 ug/dL (0-20)
[2025-01-31 13:33] LABS: Calcium 9.6 mg/dL (8.5-10.5)
[2025-01-31 13:40] LABS: Parathyroid Hormone 54.5 pg/mL (15-65)
== END 2025-01-31 11:51 | disposition home or self-care (01) ==
LOC: LAB 11:52
PROVIDERS: PCP Family Medicine; Visit Provider Internal Medicine
DX: N18.32 Chronic kidney disease, stage 3b (principal)
CPT/HCPCS: 36415; 80069; 82044; 82310; 83970; 85025

== ENCOUNTER 2025-02-14 10:12 | Outpatient (CLI) | payer OTHER, SELFPAY ==
[2025-02-14 12:05] LABS: Anion Gap 15.7 (5-19); Blood Urea Nitrogen 22 mg/dL (8-23); Calcium 9.5 mg/dL (8.5-10.5); Carbon Dioxide 25 mmol/L (22-29); Chloride 104 mmol/L (98-107); Glucose 106 mg/dL (65-115); Osmolality Calculated 294 mOsm/kg (285-295); Potassium 4.7 mmol/L (3.5-5.1); Sodium 140 mmol/L (136-145)
== END 2025-02-14 10:13 | disposition home or self-care (01) ==
LOC: LAB 10:15
PROVIDERS: PCP Family Medicine; Visit Provider Nurse Practitioner Family
DX: N18.32 Chronic kidney disease, stage 3b (principal)
CPT/HCPCS: 36415; 80048